=== PATIENT | male | born 1965 | race Caucasian/White ===

== ENCOUNTER 2017-06-22 09:27 | Inpatient (IN) | payer OTHER ==
[2017-06-22 09:49] VITALS: BMI 30.7
--- NOTE | 2017-06-22 10:03 | HP ---
COWS - Scale Resting Pulse: 0= [place] 80 or Below Sweatin= Chills/Flushing Restless Observation: 1= Difficult to Sit Still Pupil Size: 0= Normal to Room Light Bone or Joint Aches: 1= Mild Discomfort Runny Nose/ Eye Tearin= Runny Nose/Eyes GI Upset > 30mins: 2= Nausea/Diarrhea Tremor Observation: 1= Tremor [place], Not Seen Yawning Observation: 1= 1-2x During Session Anxiety or Irritability: 1=Feels Anxious/Irritable Goose Flesh Skin: 0=Smooth Skin COWS Score: 10 CIWA Score - CIWA Score Nausea/Vomitin-Mild Nausea/No Vomiting Muscle Tremors: 4-Moderate,w/Arms Extend Anxiety: 4-Mod. Anxious/Guarded Agitation: 1-Slight > Activity Paroxysmal Sweats: 1-Minimal Palms Moist Orientation: 1-Uncertain about Date Tacttile Disturbances: 1-Very Mild Itch/Numbness Auditory Disturbances: 1-Very Mild Visual Disturbances: 1-Very Mild Sensitivity Headache: 1-Very Mild CIWA-Ar Total Score: 16 Admission ROS S - HPI Chief Complaint: I want help, I want to stop using Allergies/Adverse Reactions: Allergies Allergy/AdvReac Type Severity Reaction Status Date / Time Penicillins Allergy Severe Difficulty Verified 06/22/17 09:52 Breathing History of Present Illness: 51 yo gentleman here for detox from alcohol, heroin, cocaine and 'occasion' alprazolam abuse. History of detox, rehab and methadone at [facility] years ago (history of methadone 100mg in program). No seizures. Exam Limitations: Clinical Condition - Ebola screening Have you traveled outside of the country in the last 21 days: No Have you had contact with anyone from an Ebola affected area: No Have you been sick,other than usual withdrawal symptoms: No Do you have a fever: No - Review of Systems Constitutional: Chills, Loss of Appetite, Malaise, Night Sweats, Changes in sleep EENT: reports: Nose Congestion Respiratory: reports: No Symptoms reported Cardiac: reports: No Symptoms Reported GI: reports: Nausea, Poor Appetite, Poor Fluid Intake : reports: Dysuria Musculoskeletal: reports: Back Pain Integumentary: reports: No Symptoms Reported Neuro: reports: Headache Endocrine: reports: No Symptoms Reported Hematology: reports: No Symptoms Reported Psychiatric: reports: Judgement Intact, Mood/Affect Appropiate, Orientated x3 Other Systems: Reviewed and Negative Patient History - Patient Medical History Hx Anemia: No Hx Asthma: No Hx Chronic Obstructive Pulmonary Disease (COPD): No Hx Cancer: No Hx Cardiac Disorders: No Hx Congestive Heart Failure: No Hx Hypertension: No Hx Hypercholesterolemia: No Hx Pacemaker: No HX Cerebrovascular Accident: No Hx Seizures: No Hx Dementia: No Hx Diabetes: No Hx Gastrointestinal Disorders: No Hx Liver Disease: No Hx Genitourinary Disorders: No Hx Sexually Transmitted Disorders: No Hx Renal Disease (ESRD): No Hx Thyroid Disease: No Hx Human Immunodeficiency Virus (HIV): No Hx Hepatitis C: Yes (treated x 3months last year isabelle) Hx Depression: Yes (with anxiety - hx seeing psych - hx meds) Hx Suicide Attempt: No Hx Bipolar Disorder: No Hx Schizophrenia: No - Patient Surgical History Past Surgical History: Yes Hx Abdominal Surgery: Yes (gastric sleeve lost 100lbs 2014) Hx Appendectomy: Yes Hx Orthopedic Surgery: Yes (left pinky tendon/nerve repair 1999) - PPD History Previous Implant?: Yes Documented Results: Positive w/o proof Implanted On Prior [facility] Admission?: No PPD to be Administered?: No - Reproductive History Patient is a Female of Child Bearing Age (11 -55 yrs old): No (male) - Smoking Cessation Smoking history: Current every day smoker Have you smoked in the past 12 months: Yes Aproximately how many cigarettes per day: 20 Hx Chewing Tobacco Use: No Initiated information on smoking cessation: Yes 'Breaking Loose' booklet given: 06/22/17 (give on floor) - Substance & Tx. History Hx Alcohol Use: Yes Hx Substance Use: Yes Substance Use Type: Alcohol, Cocaine, Heroin, Opiates Hx Substance Use Treatment: Yes (detox, rehab, methadone program) - Substances Abused Alcohol Route: Oral Frequency: Daily Amount used: two six packs beer; 2 pints liquor Age of first use: 19 Date of Last Use: 06/21/17 Heroin Route: Injection Frequency: Daily Amount used: 3gm Age of first use: 21 Date of Last Use: 06/22/17 Cocaine Route: Injection Frequency: Daily Amount used: 1gm Age of first use: 21 Date of Last Use: 06/22/17 Non-Rx Methadone Route: Oral Frequency: 1-2 times per week Amount used: 50mg Age of first use: 47 Date of Last Use: 06/21/17 Alprazolam (Xanax) Route: Oral Frequency: 1-3 times last 30 days Amount used: 4 mg Age of first use: 21 Date of Last Use: 06/22/17 Family Disease History - Family Disease History Family Disease History: Heart Disease: Father (living, ), Other: Father, Mother (living, arthritis), Brother (one living, healthy) Admission Physical Exam [facility] - Vital Signs Vital Signs: Vital Signs - 24 hr 06/22/17 09:43 Temperature 97.4 F L Pulse Rate 71 Respiratory 20 Rate Blood Pressure 124/75 - Physical General Appearance: Yes: Nourished, Appropriately Dressed, Moderate Distress, Tremorous, Anxious HEENTM: Yes: Hearing grossly Normal, Normal ENT Inspection, Normocephalic, Normal Voice, Pharynx Normal Respiratory: Yes: Normal Breath Sounds, No Respiratory Distress Neck: Yes: No masses,lesions,Nodules Breast: Yes: Breast Exam Deferred Cardiology: Yes: Regular Rhythm, Regular Rate Abdominal: Yes: Soft Genitourinary: Yes: Within Normal Limits Back: Yes: Normal Inspection Musculoskeletal: Yes: full range of Motion, Gait Steady, Muscle Pain Extremities: Yes: Normal Inspection, Non-Tender Neurological: Yes: Fully Oriented, Alert, Normal Mood/Affect, Normal Response Integumentary: Yes: Normal Color, Warm, Track Davis (left arm) Lymphatic: Yes: Within Normal Limits - Diagnostic (1) Uncomplicated opioid dependence Current Visit: Yes Status: Chronic (2) Alcohol dependence with uncomplicated withdrawal Current Visit: Yes Status: Chronic (3) Cocaine dependence Current Visit: Yes Status: Chronic Qualifiers: Substance use status: uncomplicated Qualified Code(s): F14.20 - Cocaine dependence, uncomplicated (4) Mild alprazolam use disorder Current Visit: Yes Status: Chronic (5) Nicotine dependence Current Visit: Yes Status: Chronic Qualifiers: Nicotine product type: cigarettes Substance use status: uncomplicated Qualified Code(s): F17.210 - Nicotine dependence, cigarettes, uncomplicated (6) PPD positive, treated Current Visit: Yes Status: Chronic Comment: states took INH x 6 months (7) History of gastric bypass Current Visit: Yes Status: Chronic Cleared for Admission [facility] - Detox or Rehab [facility] Level of Care: Medically Managed Detox Regimen/Protocol: Methadone/Librium [facility] Breath Alcohol Content Breath Alcohol Content: 0 Urine Drug Screen - Results Drug Screen Negative: No Urine Drug Screen Results: ROYAL-Cocaine, OPI-Opiates, MTD-Methadone
[2017-06-22] MEDS ORDERED: LOPERAMIDE HCL 2 MG CAPSULE PO PRN (10:35)
[2017-06-22] MEDS ORDERED: hydrOXYzine PAMOATE 50 MG CAPSULE (FP) PO PRN (10:35)
[2017-06-22] MEDS ORDERED: P-EPHED 60MG/TRIPROLIDI 2.5MG TABLET PO PRN (10:35)
[2017-06-22] MEDS ORDERED: MAGNESIUM HYDROX 2400MG/30ML ORAL SUSPENSION 30 ML CUP PO PRN (10:35)
[2017-06-22] MEDS ORDERED: MAGNESIUM CITRATE 300 ML BOTTLE PO PRN (10:35)
[2017-06-22] MEDS ORDERED: chlordiazePOXIDE HCL 25 MG CAPSULE PO PRN (10:35)
[2017-06-22] MEDS ORDERED: IBUPROFEN 400 MG TABLET (FP) PO PRN (10:35)
[2017-06-22] MEDS ORDERED: MAG HYDROX/AL HYDROX/SIMETH 30 ML UNIT-DOSE CUP PO PRN (10:35)
[2017-06-22] MEDS ORDERED: METHADONE HCL 10 MG TABLET (FOR DETOX USE ONLY) PO ONE ×3 (10:35→23:00)
[2017-06-22] MEDS ORDERED: guaiFENesin/D-METHORPHAN HB 10 ML UNIT-DOSE CUPS PO PRN (10:35)
[2017-06-22] MEDS ORDERED: MENTHOL/PHENOL 1 EACH UD MM PRN (10:35)
[2017-06-22] MEDS ORDERED: chlordiazePOXIDE HCL 25 MG CAPSULE PO ONE (13:00)
[2017-06-22] MEDS: NICOTINE 21 MG/24 HOURS TOPICAL PATCH TD SCH (13:28)
[2017-06-22] MEDS: chlordiazePOXIDE HCL 25 MG CAPSULE PO SCH ×2 (17:28→22:39)
[2017-06-22 17:42] LABS: URINE APPEARANCE SLCLOUDY; URINE BILIRUBIN NEGATIVE (NEGATIVE); URINE BLOOD NEGATIVE (NEGATIVE); URINE COLOR AMBER; URINE GLUCOSE (UA) NEGATIVE (NEGATIVE); URINE KETONE TRACE (NEGATIVE); URINE LEUK ESTERASE NEGATIVE (NEGATIVE); URINE NITRITE NEGATIVE (NEGATIVE)
[2017-06-22 17:49] LABS: URINE PROTEIN 1+ (NEGATIVE)
[2017-06-22 18:03] LABS: URINE MUCUS MANY
[2017-06-22] MEDS: THIAMINE HCL 100 MG TABLET (FP) PO SCH (22:39)
[2017-06-23] MEDS: chlordiazePOXIDE HCL 25 MG CAPSULE PO SCH ×4 (05:20→22:34)
[2017-06-23] MEDS ORDERED: METHADONE HCL 10 MG TABLET (FOR DETOX USE ONLY) PO SCH (10:00)
[2017-06-23 10:34] LABS: MCH 28.5 pg (25.7-33.7); MCHC 33.7 g/dl (32.0-35.9); MEAN CELL VOLUME 84.6 fl (80-96); MEAN PLT VOLUME 7.3 fl (7.5-11.1); PLATELET COUNT 169 K/MM3 (134-434); RDW 13.1 % (11.9-15.9)
[2017-06-23] MEDS: PRENATAL VITAMINS W/ FOLIC ACID TABLET (FP) PO SCH (10:43)
[2017-06-23] MEDS: NICOTINE 21 MG/24 HOURS TOPICAL PATCH TD SCH (10:43)
[2017-06-23 10:47] LABS: ALBUMIN 3.3 g/dl (3.4-5.0); ANION GAP 5 (8-16); CALCIUM 8.6 mg/dL (8.5-10.1); CO2 31 mmol/L (21-32); GLUCOSE,RANDOM 103 mg/dL (74-106)
[2017-06-23 10:51] LABS: ALK PHOS 61 U/L (45-117); BILIRUBIN,TOTAL 0.5 mg/dL (0.2-1.0); CREATININE 0.9 mg/dL (0.7-1.3); SGOT/AST 22 U/L (15-37); SGPT/ALT 29 U/L (12-78); TOT PROT 6.3 g/dl (6.4-8.2)
--- NOTE | 2017-06-23 11:01 | PN ---
[facility] Progress Note Note: Patient is on senior underwriter's consult list. He was approached this late morning at bedside. He was found in bed covered with bedsheet up to the neck. Critical Care Rn introduced himself and politely told him that he is here to talk to him. He responded:"For what". After being explained the reason, he declined the interview by saying:" No thank you, I'm good".
[2017-06-23] MEDS ORDERED: FLU VACCINE QUAD 60 MCG/0.5 ML (MDV 17-18) IM ONE (14:00)
[2017-06-23] MEDS: IBUPROFEN 600 MG TABLET (FP) PO PRN (14:56)
[2017-06-23] MEDS: CYCLOBENZAPRINE HCL 10 MG TABLET (FP) PO SCH ×2 (14:57→22:34)
[2017-06-23] MEDS: LIDOCAINE 5% TOPICAL PATCH TP SCH (14:57)
[2017-06-23] MEDS: ACETAMINOPHEN 325 MG TABLET (FP) PO PRN (17:19)
[2017-06-23] MEDS ORDERED: POTASSIUM CHLORIDE TABS 20 MEQ TABLET.ER (FP) PO ONE (18:49)
--- NOTE | 2017-06-23 18:49 | PN ---
S CIWA - CIWA Score Nausea/Vomitin Muscle Tremors: 4-Moderate,w/Arms Extend Anxiety: 4-Mod. Anxious/Guarded Agitation: 4-Moderately Restless Paroxysmal Sweats: 3 Orientation: 0-Oriented Tacttile Disturbances: 1-Very Mild Itch/Numbness Auditory Disturbances: 0-None Visual Disturbances: 0-None Headache: 1-Very Mild CIWA-Ar Total Score: 20 BHS COWS - Scale Resting Pulse: 0= [place] 80 or Below Sweatin=Flushed/Facial Moisture Restless Observation: 3= Extraneous Movement Pupil Size: 0= Normal to Room Light Bone or Joint Aches: 2= Severe Diffuse Aches Runny Nose/ Eye Tearin= Runny Nose/Eyes GI Upset > 30mins: 2= Nausea/Diarrhea Tremor Observation of Outstretched Hands: 2= Slight Tremor Visible Yawning Observation: 0= None Anxiety or Irritability: 2=Irritable/Anxious Goose Flesh Skin: 0=Smooth Skin COWS Score: 15 S Progress Note (SOAP) Subjective: Chills, body aches, nausea, tremor, sweating, headache, severe back pain (07/16) Objective: 06/23/17 18:45 Last Vital Signs Temp Pulse Resp BP Pulse Ox 97.2 F L 51 L 20 105/54 06/23/17 18:29 06/23/17 18:29 06/23/17 18:29 06/23/17 18:29 Laboratory Tests 06/22/17 06/23/17 06/23/17 17:20 07:30 07:30 WBC 5.0 RBC 4.18 Hgb 11.9 Hct 35.3 L MCV 84.6 MCH 28.5 MCHC 33.7 RDW 13.1 Plt Count 169 MPV 7.3 L Sodium 144 Potassium 3.2 L Chloride 108 H Carbon Dioxide 31 Anion Gap 5 L BUN 9 Creatinine 0.9 Creat Clearance w eGFR > 60 Random Glucose 103 Calcium 8.6 Total Bilirubin 0.5 AST 22 ALT 29 Alkaline Phosphatase 61 Total Protein 6.3 L Albumin 3.3 L Urine Color Jennifer Urine Appearance Slcloudy Urine pH 5.0 Ur Specific [place] >= 1.030 H Urine Protein 1+ H Urine Glucose (UA) Negative Urine Ketones Trace H Urine Blood Negative Urine Nitrite Negative Urine Bilirubin Negative Urine Urobilinogen 2.0 Urine RBC None Urine WBC None Ur Epithelial Cells Rare Urine Mucus Many RPR Titer 06/23/17 07:30 WBC RBC Hgb Hct MCV MCH MCHC RDW Plt Count MPV Sodium Potassium Chloride Carbon Dioxide Anion Gap BUN Creatinine Creat Clearance w eGFR Random Glucose Calcium Total Bilirubin AST ALT Alkaline Phosphatase Total Protein Albumin Urine Color Urine Appearance Urine pH Ur Specific [place] Urine Protein Urine Glucose (UA) Urine Ketones Urine Blood Urine Nitrite Urine Bilirubin Urine Urobilinogen Urine RBC Urine WBC Ur Epithelial Cells Urine Mucus RPR Titer Nonreactive Labs noted: K 3.2, abnormal UA Assessment: 06/23/17 18:46 Withdrawal symptoms Noted with hypokalemia and abnormal UA Plan: Continue detox Hypokalemia: K DUR 40 meq PO x 1 dose then 20meq PO daily, repeat potassium level on Saturday Abnormal UA: encouraged to drink lots of water, repeat UA
[2017-06-23] MEDS: THIAMINE HCL 100 MG TABLET (FP) PO SCH (22:33)
[2017-06-23] MEDS: diphenhydrAMINE HCL 50 MG CAPSULE PO PRN (22:34)
[2017-06-23] MEDS: LIDOCAINE PATCH REMOVAL MC SCH (22:34)
[2017-06-24] MEDS: chlordiazePOXIDE HCL 25 MG CAPSULE PO SCH ×2 (05:39→10:23)
[2017-06-24] MEDS: CYCLOBENZAPRINE HCL 10 MG TABLET (FP) PO SCH ×3 (05:39→22:25)
[2017-06-24 09:53] LABS: URINE APPEARANCE CLEAR; URINE BILIRUBIN NEGATIVE (NEGATIVE); URINE BLOOD NEGATIVE (NEGATIVE); URINE COLOR YELLOW; URINE GLUCOSE (UA) NEGATIVE (NEGATIVE); URINE KETONE NEGATIVE (NEGATIVE); URINE NITRITE NEGATIVE (NEGATIVE); URINE PROTEIN NEGATIVE (NEGATIVE); URINE UROBILINOGEN NEGATIVE mg/dL (0.2-1.0)
[2017-06-24] MEDS: METHADONE HCL 5 MG TABLET (FOR DETOX USE ONLY) PO SCH (10:23)
[2017-06-24] MEDS: NICOTINE 21 MG/24 HOURS TOPICAL PATCH TD SCH (10:23)
[2017-06-24] MEDS: PRENATAL VITAMINS W/ FOLIC ACID TABLET (FP) PO SCH (10:23)
[2017-06-24] MEDS: LIDOCAINE 5% TOPICAL PATCH TP SCH (10:24)
[2017-06-24] MEDS: POTASSIUM CHLORIDE TABS 20 MEQ TABLET.ER (FP) PO SCH (10:24)
[2017-06-24] MEDS: IBUPROFEN 600 MG TABLET (FP) PO PRN (10:24)
--- NOTE | 2017-06-24 11:24 | PN ---
[facility] CIWA - CIWA Score Nausea/Vomitin-Mild Nausea/No Vomiting Muscle Tremors: 3 Anxiety: 4-Mod. Anxious/Guarded Agitation: 3 Paroxysmal Sweats: 3 Orientation: 0-Oriented Tacttile Disturbances: 0-None Auditory Disturbances: 0-None Visual Disturbances: 0-None Headache: 0-None Present CIWA-Ar Total Score: 14 BHS COWS - Scale Resting Pulse: 1= [place] 81-100 Sweatin=Flushed/Facial Moisture Restless Observation: 1= Difficult to Sit Still Pupil Size: 0= Normal to Room Light Bone or Joint Aches: 1= Mild Discomfort Runny Nose/ Eye Tearin= Nasal Congestion GI Upset > 30mins: 1= Stomach Cramp Tremor Observation of Outstretched Hands: 2= Slight Tremor Visible Yawning Observation: 1= 1-2x During Session Anxiety or Irritability: 2=Irritable/Anxious Goose Flesh Skin: 0=Smooth Skin COWS Score: 12 S Progress Note (SOAP) Subjective: Body aches,sweating,anxiety,tremors,interrupted sleep,restless. Objective: 06/24/17 11:21 Last Vital Signs Temp Pulse Resp BP Pulse Ox 97.7 F 84 18 99/71 06/24/17 09:42 06/24/17 09:42 06/24/17 09:42 06/24/17 09:42 Laboratory Tests 06/22/17 06/23/17 06/23/17 17:20 07:30 07:30 WBC 5.0 RBC 4.18 Hgb 11.9 Hct 35.3 L MCV 84.6 MCH 28.5 MCHC 33.7 RDW 13.1 Plt Count 169 MPV 7.3 L Sodium 144 Potassium 3.2 L Chloride 108 H Carbon Dioxide 31 Anion Gap 5 L BUN 9 Creatinine 0.9 Creat Clearance w eGFR > 60 Random Glucose 103 Calcium 8.6 Total Bilirubin 0.5 AST 22 ALT 29 Alkaline Phosphatase 61 Total Protein 6.3 L Albumin 3.3 L Urine Color Jennifer Urine Appearance Slcloudy Urine pH 5.0 Ur Specific [place] >= 1.030 H Urine Protein 1+ H Urine Glucose (UA) Negative Urine Ketones Trace H Urine Blood Negative Urine Nitrite Negative Urine Bilirubin Negative Urine Urobilinogen 2.0 Urine RBC None Urine WBC None Ur Epithelial Cells Rare Urine Mucus Many RPR Titer 06/23/17 06/24/17 07:30 08:00 WBC RBC Hgb Hct MCV MCH MCHC RDW Plt Count MPV Sodium Potassium Chloride Carbon Dioxide Anion Gap BUN Creatinine Creat Clearance w eGFR Random Glucose Calcium Total Bilirubin AST ALT Alkaline Phosphatase Total Protein Albumin Urine Color Yellow Urine Appearance Clear Urine pH 5.0 Ur Specific [place] Urine Protein Negative Urine Glucose (UA) Negative Urine Ketones Negative Urine Blood Negative Urine Nitrite Negative Urine Bilirubin Negative Urine Urobilinogen Negative Urine RBC Urine WBC Ur Epithelial Cells Urine Mucus RPR Titer Nonreactive labs noted,k+ replacement in progress, u/a of 06/24 is wnl Assessment: 06/24/17 11:22 Withdrawal sx. Hypokalemia Plan: Continue detox & k-dur
[2017-06-24] MEDS: ACETAMINOPHEN 325 MG TABLET (FP) PO PRN (12:58)
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
--- NOTE | 2017-06-24 17:02 | EKG ---
Test Reason : Blood Pressure : / mmHG Vent. Rate : 056 BPM Atrial Rate : 056 BPM P-R Int : 178 ms QRS Dur : 106 ms QT Int : 484 ms P-R-T Axes : 061 032 050 degrees QTc Int : 467 ms SINUS BRADYCARDIA T WAVE ABNORMALITY, CONSIDER ANTERIOR ISCHEMIA PROLONGED QT ABNORMAL ECG NO PREVIOUS ECGS AVAILABLE Confirmed by TANVIR LINARES MD ([id number]) on 06/24/2017 5:01:46 PM Referred By: Confirmed By:TANVIR LINARES MD
[2017-06-24] MEDS: chlordiazePOXIDE 5 MG CAPSULE PO SCH ×2 (17:11→22:25)
[2017-06-24] MEDS ORDERED: CYCLOBENZAPRINE HCL 5 MG TABLET PO SCH (22:00)
[2017-06-24] MEDS: QUEtiapine FUMARATE 100 MG TABLET (FP) PO SCH (22:25)
[2017-06-24] MEDS: diphenhydrAMINE HCL 50 MG CAPSULE PO PRN (22:25)
[2017-06-24] MEDS: THIAMINE HCL 100 MG TABLET (FP) PO SCH (22:25)
[2017-06-24] MEDS: LIDOCAINE PATCH REMOVAL MC SCH (22:25)
[2017-06-25] MEDS: chlordiazePOXIDE 5 MG CAPSULE PO SCH ×2 (05:52→10:32)
[2017-06-25] MEDS: CYCLOBENZAPRINE HCL 10 MG TABLET (FP) PO SCH ×3 (05:52→22:23)
[2017-06-25] MEDS: POTASSIUM CHLORIDE TABS 20 MEQ TABLET.ER (FP) PO SCH (10:32)
[2017-06-25] MEDS: PRENATAL VITAMINS W/ FOLIC ACID TABLET (FP) PO SCH (10:32)
[2017-06-25] MEDS: LIDOCAINE 5% TOPICAL PATCH TP SCH (10:32)
[2017-06-25] MEDS: NICOTINE 21 MG/24 HOURS TOPICAL PATCH TD SCH (10:32)
[2017-06-25] MEDS: METHADONE HCL 5 MG TABLET (FOR DETOX USE ONLY) PO SCH (10:32)
[2017-06-25] MEDS: IBUPROFEN 600 MG TABLET (FP) PO PRN ×2 (10:35→22:24)
--- NOTE | 2017-06-25 11:38 | PN ---
[facility] Progress Note (SOAP) Subjective: DECREASED ANXIETY,TREMORS, SWEATS. Objective: 06/25/17 11:37 Vital Signs Temperature 98.5 F 06/25/17 09:14 Pulse Rate 66 06/25/17 09:14 Respiratory Rate 18 06/25/17 09:14 Blood Pressure 122/86 06/25/17 09:14 O2 Sat by Pulse Oximetry (%) Laboratory Last Values WBC 5.0 K/mm3 (4.0-10.0) 06/23/17 07:30 RBC 4.18 M/mm3 (4.00-5.60) 06/23/17 07:30 Hgb 11.9 GM/dL (11.7-16.9) 06/23/17 07:30 Hct 35.3 % (35.4-49) L 06/23/17 07:30 MCV 84.6 fl (80-96) 06/23/17 07:30 MCH 28.5 pg (25.7-33.7) 06/23/17 07:30 MCHC 33.7 g/dl (32.0-35.9) 06/23/17 07:30 RDW 13.1 % (11.9-15.9) 06/23/17 07:30 Plt Count 169 K/MM3 (134-434) 06/23/17 07:30 MPV 7.3 fl (7.5-11.1) L 06/23/17 07:30 Sodium 144 mmol/L (136-145) 06/23/17 07:30 Potassium 3.6 mmol/L (3.5-5.1) 06/25/17 07:00 Chloride 108 mmol/L (98-107) H 06/23/17 07:30 Carbon Dioxide 31 mmol/L (21-32) 06/23/17 07:30 Anion Gap 5 (8-16) L 06/23/17 07:30 BUN 9 mg/dL (7-18) 06/23/17 07:30 Creatinine 0.9 mg/dL (0.7-1.3) 06/23/17 07:30 Creat Clearance w eGFR > 60 (>60) 06/23/17 07:30 Random Glucose 103 mg/dL (74-106) 06/23/17 07:30 Calcium 8.6 mg/dL (8.5-10.1) 06/23/17 07:30 Total Bilirubin 0.5 mg/dL (0.2-1.0) 06/23/17 07:30 AST 22 U/L (15-37) 06/23/17 07:30 ALT 29 U/L (12-78) 06/23/17 07:30 Alkaline Phosphatase 61 U/L (45-117) 06/23/17 07:30 Total Protein 6.3 g/dl (6.4-8.2) L 06/23/17 07:30 Albumin 3.3 g/dl (3.4-5.0) L 06/23/17 07:30 Urine Color Yellow 06/24/17 08:00 Urine Appearance Clear 06/24/17 08:00 Urine pH 5.0 (5.0-8.0) 06/24/17 08:00 Ur Specific [place] 1.015 (1.005-1.025) 06/24/17 08:00 Urine Protein Negative (NEGATIVE) 06/24/17 08:00 Urine Glucose (UA) Negative (NEGATIVE) 06/24/17 08:00 Urine Ketones Negative (NEGATIVE) 06/24/17 08:00 Urine Blood Negative (NEGATIVE) 06/24/17 08:00 Urine Nitrite Negative (NEGATIVE) 06/24/17 08:00 Urine Bilirubin Negative (NEGATIVE) 06/24/17 08:00 Urine Urobilinogen Negative mg/dL (0.2-1.0) 06/24/17 08:00 Urine RBC None /hpf (0-3) 06/22/17 17:20 Urine WBC None /hpf (3-5) 06/22/17 17:20 Ur Epithelial Cells Rare /hpf (FEW) 06/22/17 17:20 Urine Mucus Many 06/22/17 17:20 RPR Titer Nonreactive (NONREACTIVE) 06/23/17 07:30 Assessment: 06/25/17 11:37 WITHDRAWAL SX Laboratory Last Values WBC 5.0 K/mm3 (4.0-10.0) 06/23/17 07:30 RBC 4.18 M/mm3 (4.00-5.60) 06/23/17 07:30 Hgb 11.9 GM/dL (11.7-16.9) 06/23/17 07:30 Hct 35.3 % (35.4-49) L 06/23/17 07:30 MCV 84.6 fl (80-96) 06/23/17 07:30 MCH 28.5 pg (25.7-33.7) 06/23/17 07:30 MCHC 33.7 g/dl (32.0-35.9) 06/23/17 07:30 RDW 13.1 % (11.9-15.9) 06/23/17 07:30 Plt Count 169 K/MM3 (134-434) 06/23/17 07:30 MPV 7.3 fl (7.5-11.1) L 06/23/17 07:30 Sodium 144 mmol/L (136-145) 06/23/17 07:30 Potassium 3.6 mmol/L (3.5-5.1) 06/25/17 07:00 Chloride 108 mmol/L (98-107) H 06/23/17 07:30 Carbon Dioxide 31 mmol/L (21-32) 06/23/17 07:30 Anion Gap 5 (8-16) L 06/23/17 07:30 BUN 9 mg/dL (7-18) 06/23/17 07:30 Creatinine 0.9 mg/dL (0.7-1.3) 06/23/17 07:30 Creat Clearance w eGFR > 60 (>60) 06/23/17 07:30 Random Glucose 103 mg/dL (74-106) 06/23/17 07:30 Calcium 8.6 mg/dL (8.5-10.1) 06/23/17 07:30 Total Bilirubin 0.5 mg/dL (0.2-1.0) 06/23/17 07:30 AST 22 U/L (15-37) 06/23/17 07:30 ALT 29 U/L (12-78) 06/23/17 07:30 Alkaline Phosphatase 61 U/L (45-117) 06/23/17 07:30 Total Protein 6.3 g/dl (6.4-8.2) L 06/23/17 07:30 Albumin 3.3 g/dl (3.4-5.0) L 06/23/17 07:30 Urine Color Yellow 06/24/17 08:00 Urine Appearance Clear 06/24/17 08:00 Urine pH 5.0 (5.0-8.0) 06/24/17 08:00 Ur Specific [place] 1.015 (1.005-1.025) 06/24/17 08:00 Urine Protein Negative (NEGATIVE) 06/24/17 08:00 Urine Glucose (UA) Negative (NEGATIVE) 06/24/17 08:00 Urine Ketones Negative (NEGATIVE) 06/24/17 08:00 Urine Blood Negative (NEGATIVE) 06/24/17 08:00 Urine Nitrite Negative (NEGATIVE) 06/24/17 08:00 Urine Bilirubin Negative (NEGATIVE) 06/24/17 08:00 Urine Urobilinogen Negative mg/dL (0.2-1.0) 06/24/17 08:00 Urine RBC None /hpf (0-3) 06/22/17 17:20 Urine WBC None /hpf (3-5) 06/22/17 17:20 Ur Epithelial Cells Rare /hpf (FEW) 06/22/17 17:20 Urine Mucus Many 06/22/17 17:20 RPR Titer Nonreactive (NONREACTIVE) 06/23/17 07:30 Plan: CONTINUE DETOX.
[2017-06-25] MEDS: chlordiazePOXIDE HCL 10 MG CAPSULE PO SCH ×2 (17:03→22:25)
[2017-06-25] MEDS: THIAMINE HCL 100 MG TABLET (FP) PO SCH (22:23)
[2017-06-25] MEDS: QUEtiapine FUMARATE 100 MG TABLET (FP) PO SCH (22:23)
[2017-06-25] MEDS: LIDOCAINE PATCH REMOVAL MC SCH (22:25)
[2017-06-26] MEDS: chlordiazePOXIDE HCL 10 MG CAPSULE PO SCH ×2 (05:42→10:24)
[2017-06-26] MEDS: CYCLOBENZAPRINE HCL 10 MG TABLET (FP) PO SCH ×3 (05:42→22:39)
[2017-06-26] MEDS ORDERED: METHADONE HCL 10 MG TABLET (FOR DETOX USE ONLY) PO SCH (10:00)
[2017-06-26] MEDS: NICOTINE 21 MG/24 HOURS TOPICAL PATCH TD SCH (10:24)
[2017-06-26] MEDS: PRENATAL VITAMINS W/ FOLIC ACID TABLET (FP) PO SCH (10:24)
[2017-06-26] MEDS: POTASSIUM CHLORIDE TABS 20 MEQ TABLET.ER (FP) PO SCH (10:24)
[2017-06-26] MEDS: LIDOCAINE 5% TOPICAL PATCH TP SCH (11:44)
--- NOTE | 2017-06-26 12:30 | PN ---
[facility] Progress Note (SOAP) Subjective: ANXIETY,SWEATS, TREMORS, INTERMITTENT SLEEP. Objective: 06/26/17 12:29 Vital Signs Temperature 97.6 F 06/26/17 09:34 Pulse Rate 79 06/26/17 09:34 Respiratory Rate 18 06/26/17 09:34 Blood Pressure 123/72 06/26/17 09:34 O2 Sat by Pulse Oximetry (%) Laboratory Last Values WBC 5.0 K/mm3 (4.0-10.0) 06/23/17 07:30 RBC 4.18 M/mm3 (4.00-5.60) 06/23/17 07:30 Hgb 11.9 GM/dL (11.7-16.9) 06/23/17 07:30 Hct 35.3 % (35.4-49) L 06/23/17 07:30 MCV 84.6 fl (80-96) 06/23/17 07:30 MCH 28.5 pg (25.7-33.7) 06/23/17 07:30 MCHC 33.7 g/dl (32.0-35.9) 06/23/17 07:30 RDW 13.1 % (11.9-15.9) 06/23/17 07:30 Plt Count 169 K/MM3 (134-434) 06/23/17 07:30 MPV 7.3 fl (7.5-11.1) L 06/23/17 07:30 Sodium 144 mmol/L (136-145) 06/23/17 07:30 Potassium 3.6 mmol/L (3.5-5.1) 06/25/17 07:00 Chloride 108 mmol/L (98-107) H 06/23/17 07:30 Carbon Dioxide 31 mmol/L (21-32) 06/23/17 07:30 Anion Gap 5 (8-16) L 06/23/17 07:30 BUN 9 mg/dL (7-18) 06/23/17 07:30 Creatinine 0.9 mg/dL (0.7-1.3) 06/23/17 07:30 Creat Clearance w eGFR > 60 (>60) 06/23/17 07:30 Random Glucose 103 mg/dL (74-106) 06/23/17 07:30 Calcium 8.6 mg/dL (8.5-10.1) 06/23/17 07:30 Total Bilirubin 0.5 mg/dL (0.2-1.0) 06/23/17 07:30 AST 22 U/L (15-37) 06/23/17 07:30 ALT 29 U/L (12-78) 06/23/17 07:30 Alkaline Phosphatase 61 U/L (45-117) 06/23/17 07:30 Total Protein 6.3 g/dl (6.4-8.2) L 06/23/17 07:30 Albumin 3.3 g/dl (3.4-5.0) L 06/23/17 07:30 Urine Color Yellow 06/24/17 08:00 Urine Appearance Clear 06/24/17 08:00 Urine pH 5.0 (5.0-8.0) 06/24/17 08:00 Ur Specific [place] 1.015 (1.005-1.025) 06/24/17 08:00 Urine Protein Negative (NEGATIVE) 06/24/17 08:00 Urine Glucose (UA) Negative (NEGATIVE) 06/24/17 08:00 Urine Ketones Negative (NEGATIVE) 06/24/17 08:00 Urine Blood Negative (NEGATIVE) 06/24/17 08:00 Urine Nitrite Negative (NEGATIVE) 06/24/17 08:00 Urine Bilirubin Negative (NEGATIVE) 06/24/17 08:00 Urine Urobilinogen Negative mg/dL (0.2-1.0) 06/24/17 08:00 Urine RBC None /hpf (0-3) 06/22/17 17:20 Urine WBC None /hpf (3-5) 06/22/17 17:20 Ur Epithelial Cells Rare /hpf (FEW) 06/22/17 17:20 Urine Mucus Many 06/22/17 17:20 RPR Titer Nonreactive (NONREACTIVE) 06/23/17 07:30 Assessment: 06/26/17 12:29 WITHDRAWAL SX Plan: CONTINUE DETOX
[2017-06-26] MEDS: QUEtiapine FUMARATE 100 MG TABLET (FP) PO SCH (22:39)
[2017-06-26] MEDS: THIAMINE HCL 100 MG TABLET (FP) PO SCH (22:39)
[2017-06-26] MEDS: diphenhydrAMINE HCL 50 MG CAPSULE PO PRN (22:39)
[2017-06-26] MEDS: LIDOCAINE PATCH REMOVAL MC SCH (22:39)
[2017-06-26] MEDS: IBUPROFEN 600 MG TABLET (FP) PO PRN (22:40)
[2017-06-27] MEDS: CYCLOBENZAPRINE HCL 10 MG TABLET (FP) PO SCH (05:47)
[2017-06-27] MEDS ORDERED: METHADONE HCL 5 MG TABLET (FOR DETOX USE ONLY) PO SCH (06:00)
--- NOTE | 2017-06-27 08:20 | DS ---
[facility] Detox Discharge Summary Admission Date: 06/22/17 Discharge Date: 06/27/17 - History Present History: Alcohol Dependence, Cocaine Dependence, Opioid Dependence, Sedative Dependence Additional Comments: DETOX COMPLETED. ALERT O X 3. NAD. PT WILL BE FOLLOWING UP FOR MEDICAL MANAGEMENT AT [place], [place]. Pertinent Past History: S/P GASTRIC BYPASS - Physical Exam Results Vital Signs: Vital Signs Temperature 96.5 F L 06/27/17 06:29 Pulse Rate 81 06/27/17 06:29 Respiratory Rate 18 06/27/17 06:29 Blood Pressure 95/69 06/27/17 06:29 O2 Sat by Pulse Oximetry (%) Pertinent Admission Physical Exam Findings: WITHDRAWAL SX Laboratory Last Values WBC 5.0 K/mm3 (4.0-10.0) 06/23/17 07:30 RBC 4.18 M/mm3 (4.00-5.60) 06/23/17 07:30 Hgb 11.9 GM/dL (11.7-16.9) 06/23/17 07:30 Hct 35.3 % (35.4-49) L 06/23/17 07:30 MCV 84.6 fl (80-96) 06/23/17 07:30 MCH 28.5 pg (25.7-33.7) 06/23/17 07:30 MCHC 33.7 g/dl (32.0-35.9) 06/23/17 07:30 RDW 13.1 % (11.9-15.9) 06/23/17 07:30 Plt Count 169 K/MM3 (134-434) 06/23/17 07:30 MPV 7.3 fl (7.5-11.1) L 06/23/17 07:30 Sodium 144 mmol/L (136-145) 06/23/17 07:30 Potassium 3.6 mmol/L (3.5-5.1) 06/25/17 07:00 Chloride 108 mmol/L (98-107) H 06/23/17 07:30 Carbon Dioxide 31 mmol/L (21-32) 06/23/17 07:30 Anion Gap 5 (8-16) L 06/23/17 07:30 BUN 9 mg/dL (7-18) 06/23/17 07:30 Creatinine 0.9 mg/dL (0.7-1.3) 06/23/17 07:30 Creat Clearance w eGFR > 60 (>60) 06/23/17 07:30 Random Glucose 103 mg/dL (74-106) 06/23/17 07:30 Calcium 8.6 mg/dL (8.5-10.1) 06/23/17 07:30 Total Bilirubin 0.5 mg/dL (0.2-1.0) 06/23/17 07:30 AST 22 U/L (15-37) 06/23/17 07:30 ALT 29 U/L (12-78) 06/23/17 07:30 Alkaline Phosphatase 61 U/L (45-117) 06/23/17 07:30 Total Protein 6.3 g/dl (6.4-8.2) L 06/23/17 07:30 Albumin 3.3 g/dl (3.4-5.0) L 06/23/17 07:30 Urine Color Yellow 06/24/17 08:00 Urine Appearance Clear 06/24/17 08:00 Urine pH 5.0 (5.0-8.0) 06/24/17 08:00 Ur Specific [place] 1.015 (1.005-1.025) 06/24/17 08:00 Urine Protein Negative (NEGATIVE) 06/24/17 08:00 Urine Glucose (UA) Negative (NEGATIVE) 06/24/17 08:00 Urine Ketones Negative (NEGATIVE) 06/24/17 08:00 Urine Blood Negative (NEGATIVE) 06/24/17 08:00 Urine Nitrite Negative (NEGATIVE) 06/24/17 08:00 Urine Bilirubin Negative (NEGATIVE) 06/24/17 08:00 Urine Urobilinogen Negative mg/dL (0.2-1.0) 06/24/17 08:00 Urine RBC None /hpf (0-3) 06/22/17 17:20 Urine WBC None /hpf (3-5) 06/22/17 17:20 Ur Epithelial Cells Rare /hpf (FEW) 06/22/17 17:20 Urine Mucus Many 06/22/17 17:20 RPR Titer Nonreactive (NONREACTIVE) 06/23/17 07:30 - Treatment Hospital Course: Detox Protocol Followed, Detoxed Safely, Responded well, Discharged Condition Good, Rehab Referral Accepted - Medication Discharge Medications: Ambulatory Orders Cyclobenzaprine HCl [Flexeril -] 10 mg PO HS 06/22/17 Quetiapine Fumarate [Seroquel] 100 tab PO HS 06/22/17 Cyclobenzaprine HCl [Flexeril -] 10 mg PO HS #30 tablet 06/24/17 Quetiapine Fumarate [Seroquel] 100 mg PO HS #30 tablet 06/24/17 Quetiapine Fumarate [Seroquel] 100 mg PO HS #30 tablet 06/24/17 - Diagnosis (1) Alcohol dependence with uncomplicated withdrawal Status: Acute (2) Cocaine dependence Status: Acute Qualifiers: Substance use status: uncomplicated Qualified Code(s): F14.20 - Cocaine dependence, uncomplicated (3) History of gastric bypass Status: Chronic (4) Mild alprazolam use disorder Status: Acute (5) Nicotine dependence Status: Acute Qualifiers: Nicotine product type: cigarettes Substance use status: in withdrawal Qualified Code(s): F17.213 - Nicotine dependence, cigarettes, with withdrawal (6) Opioid dependence with withdrawal Status: Acute (7) History of hepatitis C Status: Chronic - AMA Did Patient Leave Against Medical Advice: No
[2017-06-27] MEDS: LIDOCAINE 5% TOPICAL PATCH TP SCH (09:10)
[2017-06-27] MEDS: PRENATAL VITAMINS W/ FOLIC ACID TABLET (FP) PO SCH (09:10)
[2017-06-27] MEDS: POTASSIUM CHLORIDE TABS 20 MEQ TABLET.ER (FP) PO SCH (09:10)
[2017-06-27 09:49] VITALS: BP 105/74; PULSE 86; TEMP 98.4
== END 2017-06-27 11:17 | disposition home or self-care (01) | DRG 773 ==
LOC: YASAS 09:27 → Y3N 11:09
PROVIDERS: ADMIT Internal Medicine; ATTEND Internal Medicine
PROC: HZ2ZZZZ Detoxification Services for Substance Abuse Treatment (ICD-10-PCS; principal; 2017-06-22)
DX: F11.23 Opioid dependence with withdrawal (principal); F13.10 Sedative, hypnotic or anxiolytic abuse, uncomplicated; F10.230 Alcohol dependence with withdrawal, uncomplicated; F17.213 Nicotine dependence, cigarettes, with withdrawal; F19.24 Other psychoactive substance dependence with psychoactive substance-induced mood disorder; Z98.84 Bariatric surgery status
CPT/HCPCS: 36415; 71020-TC; 80053; 81003; 81015; 84132; 85027; 86593; 93005; 93010

== ENCOUNTER 2021-03-12 15:07 | Inpatient (IN) | payer OTHER ==
[2021-03-12 16:04] VITALS: BMI 35.9
[2021-03-12] MEDS ORDERED: MAGNESIUM CITRATE 300 ML BOTTLE PO PRN (17:02)
[2021-03-12] MEDS ORDERED: ACETAMINOPHEN 325 MG TABLET (FP) PO PRN (17:02)
[2021-03-12] MEDS ORDERED: IBUPROFEN 400 MG TABLET (FP) PO PRN (17:02)
[2021-03-12] MEDS ORDERED: BISMUTH SUBSALICYLATE 524 MG/30 ML PO PRN (17:02)
[2021-03-12] MEDS ORDERED: MAG HYDROX/AL HYDROX/SIMETH 30 ML UNIT-DOSE CUP PO PRN (17:02)
[2021-03-12] MEDS ORDERED: MENTHOL/PHENOL 1 EACH UD MM PRN (17:02)
[2021-03-12] MEDS ORDERED: NICOTINE POLACRILEX 2 MG GUM BUC PRN (17:02)
[2021-03-12] MEDS ORDERED: METHADONE HCL 10 MG TABLET (FOR DETOX USE ONLY) PO ONE (17:04)
[2021-03-12] MEDS ORDERED: cloNIDine HCL 0.1 MG TABLET PO PRN (17:04)
[2021-03-12] MEDS: diazePAM 5 MG TABLET PO SCH ×2 (19:28→22:10)
[2021-03-12] MEDS: MELATONIN 5 MG TABLETS PO SCH (22:11)
[2021-03-12] MEDS: THIAMINE HCL 100 MG TABLET (FP) PO SCH (22:11)
[2021-03-13] MEDS: METHOCARBAMOL 500 MG TABLET PO PRN ×3 (00:50→17:38)
[2021-03-13] MEDS: ACETAMINOPHEN 325 MG TABLET (FP) PO PRN (05:28)
[2021-03-13] MEDS: diazePAM 5 MG TABLET PO SCH ×4 (05:29→21:59)
[2021-03-13] MEDS ORDERED: METHADONE HCL 10 MG TABLET (FOR DETOX USE ONLY) ONE (09:58)
[2021-03-13] MEDS ORDERED: METHADONE HCL 5 MG TABLET (FOR DETOX USE ONLY) ONE (09:58)
[2021-03-13] MEDS ORDERED: METHADONE (DETOX) 20 MG, METHADONE (DETOX) 5 MG PO ONE (10:00)
[2021-03-13] MEDS: PRENATAL VITAMINS W/ FOLIC ACID TABLET (FP) PO SCH (10:03)
[2021-03-13 10:24] LABS: HEMATOCRIT 34.5 % (35.4-49); HEMOGLOBIN 11.5 GM/dL (11.7-16.9); MCH 29.3 pg (25.7-33.7); MCHC 33.4 g/dl (32.0-35.9); MEAN CELL VOLUME 87.7 fl (80-96); MEAN PLT VOLUME 7.2 fl (7.5-11.1); PLATELET COUNT 166 K/MM3 (134-434); RBC 3.93 M/mm3 (4.00-5.60); RDW 14.6 % (11.9-15.9); WHITE BLOOD COUNT 4.5 K/mm3 (4.0-10.0)
[2021-03-13 10:39] LABS: CALCIUM 8.6 mg/dL (8.5-10.1)
[2021-03-13 10:40] LABS: ALBUMIN 3.2 g/dl (3.4-5.0); BLOOD UREA NITROGEN 16.4 mg/dL (7-18)
[2021-03-13 10:44] LABS: CREATININE 0.9 mg/dL (0.55-1.3)
[2021-03-13 10:45] LABS: TOT PROT 6.1 g/dl (6.4-8.2)
[2021-03-13 10:47] LABS: BILIRUBIN,TOTAL 1.1 mg/dL (0.2-1)
[2021-03-13] MEDS: diazePAM 5 MG TABLET PO PRN (13:49)
[2021-03-13] MEDS: THIAMINE HCL 100 MG TABLET (FP) PO SCH (21:57)
[2021-03-13] MEDS: MELATONIN 5 MG TABLETS PO SCH (21:57)
[2021-03-13] MEDS: MAGNESIUM HYDROX 2400MG/30ML ORAL SUSPENSION 30 ML CUP PO PRN (21:58)
[2021-03-14] MEDS: diazePAM 5 MG TABLET PO SCH ×2 (05:46→17:57)
[2021-03-14] MEDS: ACETAMINOPHEN 325 MG TABLET (FP) PO PRN ×2 (05:47→14:10)
[2021-03-14] MEDS ORDERED: METHADONE HCL 10 MG TABLET (FOR DETOX USE ONLY) PO ONE (10:00)
[2021-03-14] MEDS: diazePAM 5 MG TABLET PO PRN ×3 (10:07→22:08)
[2021-03-14] MEDS: PRENATAL VITAMINS W/ FOLIC ACID TABLET (FP) PO SCH (10:07)
[2021-03-14] MEDS: THIAMINE HCL 100 MG TABLET (FP) PO SCH (22:07)
[2021-03-14] MEDS: MELATONIN 5 MG TABLETS PO SCH (22:07)
[2021-03-15] MEDS: ACETAMINOPHEN 325 MG TABLET (FP) PO PRN (05:46)
[2021-03-15] MEDS ORDERED: diazePAM 5 MG TABLET PO ONE (06:00)
[2021-03-15] MEDS ORDERED: METHADONE HCL 10 MG TABLET (FOR DETOX USE ONLY) ONE (09:47)
[2021-03-15] MEDS ORDERED: METHADONE HCL 5 MG TABLET (FOR DETOX USE ONLY) ONE (09:47)
[2021-03-15] MEDS ORDERED: METHADONE (DETOX) 10 MG, METHADONE (DETOX) 5 MG PO ONE (10:00)
[2021-03-15] MEDS: diazePAM 5 MG TABLET PO PRN ×2 (10:04→15:12)
[2021-03-15] MEDS: PRENATAL VITAMINS W/ FOLIC ACID TABLET (FP) PO SCH (10:05)
[2021-03-15] MEDS: METHOCARBAMOL 500 MG TABLET PO PRN (10:06)
[2021-03-15 11:04] LABS: HEMATOCRIT 36.1 % (35.4-49); HEMOGLOBIN 12.1 GM/dL (11.7-16.9); MCH 29.5 pg (25.7-33.7); MCHC 33.7 g/dl (32.0-35.9); MEAN CELL VOLUME 87.6 fl (80-96); MEAN PLT VOLUME 7.1 fl (7.5-11.1); PLATELET COUNT 187 K/MM3 (134-434); RBC 4.12 M/mm3 (4.00-5.60); RDW 14.5 % (11.9-15.9); WHITE BLOOD COUNT 4.4 K/mm3 (4.0-10.0)
[2021-03-15 11:24] LABS: ALBUMIN 3.1 g/dl (3.4-5.0); BLOOD UREA NITROGEN 10.6 mg/dL (7-18)
[2021-03-15 11:27] LABS: CREATININE 0.7 mg/dL (0.55-1.3)
[2021-03-15 11:28] LABS: BILIRUBIN,TOTAL 0.2 mg/dL (0.2-1); TOT PROT 6.2 g/dl (6.4-8.2)
[2021-03-15] MEDS: hydrOXYzine PAMOATE 25 MG CAPSULE (FP) PO PRN ×2 (17:46→22:03)
[2021-03-15] MEDS: MELATONIN 5 MG TABLETS PO SCH (22:02)
[2021-03-15] MEDS: THIAMINE HCL 100 MG TABLET (FP) PO SCH (22:02)
[2021-03-15] MEDS: MAGNESIUM HYDROX 2400MG/30ML ORAL SUSPENSION 30 ML CUP PO PRN (22:04)
[2021-03-16] MEDS: hydrOXYzine PAMOATE 25 MG CAPSULE (FP) PO PRN ×4 (05:47→22:01)
[2021-03-16] MEDS: ACETAMINOPHEN 325 MG TABLET (FP) PO PRN ×2 (05:47→18:57)
[2021-03-16] MEDS: METHOCARBAMOL 500 MG TABLET PO PRN ×2 (09:53→18:57)
[2021-03-16] MEDS: PRENATAL VITAMINS W/ FOLIC ACID TABLET (FP) PO SCH (09:53)
[2021-03-16] MEDS ORDERED: METHADONE HCL 10 MG TABLET (FOR DETOX USE ONLY) PO ONE (10:00)
[2021-03-16] MEDS: MELATONIN 5 MG TABLETS PO SCH (22:01)
[2021-03-16] MEDS: THIAMINE HCL 100 MG TABLET (FP) PO SCH (22:01)
[2021-03-17] MEDS: ACETAMINOPHEN 325 MG TABLET (FP) PO PRN (04:33)
[2021-03-17] MEDS: METHOCARBAMOL 500 MG TABLET PO PRN (05:40)
[2021-03-17] MEDS ORDERED: METHADONE HCL 5 MG TABLET (FOR DETOX USE ONLY) PO ONE (06:00)
[2021-03-17 06:15] VITALS: TEMP 96.9
[2021-03-17 09:17] VITALS: BP 114/76; PULSE 84
[2021-03-17] MEDS: PRENATAL VITAMINS W/ FOLIC ACID TABLET (FP) PO SCH (09:36)
== END 2021-03-17 09:31 | disposition home or self-care (01) | DRG 773 ==
LOC: YASAS 15:07 → Y3N 17:57
PROVIDERS: ADMIT Allergy & Immunology; ATTEND Allergy & Immunology
PROC: HZ2ZZZZ Detoxification Services for Substance Abuse Treatment (ICD-10-PCS; principal; 2021-03-12)
DX: F11.23 Opioid dependence with withdrawal (principal); F10.230 Alcohol dependence with withdrawal, uncomplicated; F14.20 Cocaine dependence, uncomplicated; F13.10 Sedative, hypnotic or anxiolytic abuse, uncomplicated; F12.20 Cannabis dependence, uncomplicated; F17.210 Nicotine dependence, cigarettes, uncomplicated; F19.24 Other psychoactive substance dependence with psychoactive substance-induced mood disorder; B18.2 Chronic viral hepatitis C; R76.11 Nonspecific reaction to tuberculin skin test without active tuberculosis; Z98.84 Bariatric surgery status; Z88.0 Allergy status to penicillin
CPT/HCPCS: 36415; 71045-TC-FY; 80053; 85027; 86780; C9803; J0735; U0003; U0005

== ENCOUNTER 2021-09-29 13:00 | Inpatient (IN) | payer OTHER ==
[2021-09-29 13:25] VITALS: BMI 32.1
[2021-09-29] MEDS ORDERED: MAGNESIUM CITRATE 300 ML BOTTLE PO PRN (13:44)
[2021-09-29] MEDS ORDERED: NICOTINE 10 MG CARTRIDGE (INHALER) IH PRN (13:44)
[2021-09-29] MEDS ORDERED: MENTHOL/PHENOL 1 EACH UD MM PRN (13:44)
[2021-09-29] MEDS ORDERED: BISMUTH SUBSALICYLATE 524 MG/30 ML PO PRN (13:44)
[2021-09-29] MEDS ORDERED: MAGNESIUM HYDROX 2400MG/30ML ORAL SUSPENSION 30 ML CUP PO PRN (13:44)
[2021-09-29] MEDS ORDERED: MAG HYDROX/AL HYDROX/SIMETH 30 ML UNIT-DOSE CUP PO PRN (13:44)
[2021-09-29] MEDS ORDERED: ONDANSETRON *ODT* 4 MG TABLET SL PRN (13:44)
[2021-09-29] MEDS ORDERED: ACETAMINOPHEN 325 MG TABLET (FP) PO PRN ×2 (13:44)
[2021-09-29] MEDS ORDERED: methaDONE HCL 10 MG TABLET (FOR DETOX USE ONLY) PO ONE (15:00)
[2021-09-29] MEDS: METHOCARBAMOL 500 MG TABLET PO PRN (15:39)
[2021-09-29] MEDS: hydrOXYzine PAMOATE 25 MG CAPSULE (FP) PO SCH ×3 (15:39→23:55)
[2021-09-29] MEDS: IBUPROFEN 400 MG TABLET (FP) PO PRN (19:21)
[2021-09-29] MEDS: THIAMINE HCL 100 MG TABLET (FP) PO SCH (23:53)
[2021-09-29] MEDS: MELATONIN 5 MG TABLETS PO SCH (23:53)
[2021-09-29] MEDS: CYCLOBENZAPRINE HCL 10 MG TABLET (FP) PO SCH (23:53)
[2021-09-30] MEDS: hydrOXYzine PAMOATE 25 MG CAPSULE (FP) PO SCH ×5 (05:38→22:12)
[2021-09-30] MEDS ORDERED: methaDONE HCL 10 MG TABLET (FOR DETOX USE ONLY) ONE (09:18)
[2021-09-30] MEDS: METHOCARBAMOL 500 MG TABLET PO PRN (09:19)
[2021-09-30] MEDS: PRENATAL VITAMINS W/ FOLIC ACID TABLET (FP) PO SCH (09:19)
[2021-09-30 10:29] LABS: HEMATOCRIT 37.1 % (35.4-49); HEMOGLOBIN 12.2 GM/dL (11.7-16.9); MCH 28.5 pg (25.7-33.7); MCHC 32.9 g/dl (32.0-35.9); MEAN CELL VOLUME 86.6 fl (80-96); MEAN PLT VOLUME 7.2 fl (7.5-11.1); PLATELET COUNT 172 10^3/uL (134-434); RBC 4.28 M/mm3 (4.00-5.60); RDW 14.8 % (11.9-15.9); WHITE BLOOD COUNT 4.3 K/mm3 (4.0-10.0)
[2021-09-30 10:52] LABS: CALCIUM 8.4 mg/dL (8.5-10.1)
[2021-09-30 10:53] LABS: ALBUMIN 2.7 g/dl (3.4-5.0)
[2021-09-30 10:56] LABS: CREATININE 0.8 mg/dL (0.55-1.3)
[2021-09-30 10:57] LABS: BILIRUBIN,TOTAL 0.5 mg/dL (0.2-1); TOT PROT 5.9 g/dl (6.4-8.2)
[2021-09-30] MEDS: IBUPROFEN 400 MG TABLET (FP) PO PRN (14:17)
[2021-09-30] MEDS: cloNIDine HCL 0.1 MG TABLET PO PRN (17:48)
[2021-09-30] MEDS: CYCLOBENZAPRINE HCL 10 MG TABLET (FP) PO SCH (22:12)
[2021-09-30] MEDS: MELATONIN 5 MG TABLETS PO SCH (22:12)
[2021-09-30] MEDS: THIAMINE HCL 100 MG TABLET (FP) PO SCH (22:12)
[2021-10-01] MEDS: cloNIDine HCL 0.1 MG TABLET PO PRN ×2 (05:56→16:45)
[2021-10-01] MEDS: hydrOXYzine PAMOATE 25 MG CAPSULE (FP) PO SCH ×5 (05:56→23:38)
[2021-10-01] MEDS: PRENATAL VITAMINS W/ FOLIC ACID TABLET (FP) PO SCH (10:00)
[2021-10-01] MEDS ORDERED: methaDONE HCL 10 MG TABLET (FOR DETOX USE ONLY) PO ONE (10:00)
[2021-10-01] MEDS: METHOCARBAMOL 500 MG TABLET PO PRN (10:05)
[2021-10-01] MEDS: CYCLOBENZAPRINE HCL 10 MG TABLET (FP) PO SCH (23:38)
[2021-10-01] MEDS: MELATONIN 5 MG TABLETS PO SCH (23:38)
[2021-10-01] MEDS: THIAMINE HCL 100 MG TABLET (FP) PO SCH (23:39)
[2021-10-02] MEDS: hydrOXYzine PAMOATE 25 MG CAPSULE (FP) PO SCH ×5 (05:52→22:12)
[2021-10-02] MEDS ORDERED: methaDONE HCL 10 MG TABLET (FOR DETOX USE ONLY) ONE (09:19)
[2021-10-02] MEDS: METHOCARBAMOL 500 MG TABLET PO PRN (09:45)
[2021-10-02] MEDS: PRENATAL VITAMINS W/ FOLIC ACID TABLET (FP) PO SCH (09:45)
[2021-10-02] MEDS ORDERED: cloNIDine HCL 0.1 MG TABLET PO PRN (10:47)
[2021-10-02] MEDS: MELATONIN 5 MG TABLETS PO SCH (22:11)
[2021-10-02] MEDS: THIAMINE HCL 100 MG TABLET (FP) PO SCH (22:11)
[2021-10-02] MEDS: CYCLOBENZAPRINE HCL 10 MG TABLET (FP) PO SCH (22:12)
[2021-10-03] MEDS: hydrOXYzine PAMOATE 25 MG CAPSULE (FP) PO SCH ×2 (05:43→09:08)
[2021-10-03] MEDS ORDERED: methaDONE HCL 10 MG TABLET (FOR DETOX USE ONLY) PO ONE ×2 (08:19→10:00)
[2021-10-03] MEDS: PRENATAL VITAMINS W/ FOLIC ACID TABLET (FP) PO SCH (09:08)
[2021-10-03 09:25] VITALS: BP 119/64; PULSE 81; TEMP 97.1
== END 2021-10-03 09:40 | disposition home or self-care (01) | DRG 773 ==
LOC: YASAS 13:00 → Y3N 14:47 → Y6N 15:18
PROVIDERS: ADMIT Allergy & Immunology; ATTEND Allergy & Immunology
PROC: HZ2ZZZZ Detoxification Services for Substance Abuse Treatment (ICD-10-PCS; principal; 2021-09-29)
DX: F11.23 Opioid dependence with withdrawal (principal); F14.20 Cocaine dependence, uncomplicated; F12.20 Cannabis dependence, uncomplicated; F17.210 Nicotine dependence, cigarettes, uncomplicated; F41.9 Anxiety disorder, unspecified; R73.09 Other abnormal glucose; E66.9 Obesity, unspecified; Z68.32 Body mass index [BMI] 32.0-32.9, adult; Z88.0 Allergy status to penicillin; Z86.11 Personal history of tuberculosis; Z86.19 Personal history of other infectious and parasitic diseases; Z98.84 Bariatric surgery status
CPT/HCPCS: 36415; 80053; 82962; 85027; 86780; C9803; J0735; Q0162; U0003; U0005

== ENCOUNTER 2021-10-17 12:31 | Inpatient (IN) | payer OTHER ==
[2021-10-17] MEDS ORDERED: MAGNESIUM HYDROX 2400MG/30ML ORAL SUSPENSION 30 ML CUP PO PRN (12:55)
[2021-10-17] MEDS ORDERED: methaDONE HCL 10 MG TABLET (FOR DETOX USE ONLY) PO ONE (12:55)
[2021-10-17] MEDS ORDERED: MAG HYDROX/AL HYDROX/SIMETH 30 ML UNIT-DOSE CUP PO PRN (12:55)
[2021-10-17] MEDS ORDERED: MENTHOL/PHENOL 1 EACH UD MM PRN (12:55)
[2021-10-17] MEDS ORDERED: IBUPROFEN 400 MG TABLET (FP) PO PRN (12:55)
[2021-10-17] MEDS ORDERED: ONDANSETRON *ODT* 4 MG TABLET SL PRN (12:55)
[2021-10-17] MEDS ORDERED: ACETAMINOPHEN 325 MG TABLET (FP) PO PRN ×2 (12:55)
[2021-10-17] MEDS ORDERED: MAGNESIUM CITRATE 300 ML BOTTLE PO PRN (12:55)
[2021-10-17] MEDS ORDERED: NICOTINE 10 MG CARTRIDGE (INHALER) IH PRN (12:55)
[2021-10-17] MEDS ORDERED: METHOCARBAMOL 500 MG TABLET PO PRN (12:55)
[2021-10-17] MEDS ORDERED: BISMUTH SUBSALICYLATE 262 MG/15 ML BTL PO PRN (12:55)
[2021-10-17 13:11] VITALS: BMI 33.6
[2021-10-17] MEDS: PRENATAL VITAMINS W/ FOLIC ACID TABLET (FP) PO SCH (15:46)
[2021-10-17] MEDS: hydrOXYzine PAMOATE 25 MG CAPSULE (FP) PO SCH ×3 (15:47→22:08)
[2021-10-17 16:14] LABS: ALBUMIN 3.4 g/dl (3.4-5.0); CALCIUM 8.6 mg/dL (8.5-10.1); HEMATOCRIT 38.6 % (35.4-49); HEMOGLOBIN 12.5 GM/dL (11.7-16.9); MCHC 32.3 g/dl (32.0-35.9); MEAN CELL VOLUME 86.7 fl (80-96); MEAN PLT VOLUME 7.4 fl (7.5-11.1); PLATELET COUNT 170 10^3/uL (134-434); RBC 4.45 M/mm3 (4.00-5.60); RDW 15.3 % (11.9-15.9)
[2021-10-17 16:15] LABS: BLOOD UREA NITROGEN 14.8 mg/dL (7-18)
[2021-10-17 16:18] LABS: CREATININE 0.8 mg/dL (0.55-1.3)
[2021-10-17 16:19] LABS: BILIRUBIN,TOTAL 0.2 mg/dL (0.2-1); TOT PROT 6.7 g/dl (6.4-8.2)
[2021-10-17] MEDS: CYCLOBENZAPRINE HCL 10 MG TABLET (FP) PO SCH (22:08)
[2021-10-17] MEDS: THIAMINE HCL 100 MG TABLET (FP) PO SCH (22:08)
[2021-10-17] MEDS: MELATONIN 5 MG TABLETS PO SCH (22:09)
[2021-10-18] MEDS: hydrOXYzine PAMOATE 25 MG CAPSULE (FP) PO SCH ×5 (05:50→21:16)
[2021-10-18] MEDS ORDERED: methaDONE HCL 10 MG TABLET (FOR DETOX USE ONLY) ONE (10:07)
[2021-10-18] MEDS: PRENATAL VITAMINS W/ FOLIC ACID TABLET (FP) PO SCH (10:12)
[2021-10-18] MEDS: cloNIDine HCL 0.1 MG TABLET PO PRN (10:12)
[2021-10-18] MEDS: diazePAM 5 MG TABLET PO PRN (10:41)
[2021-10-18] MEDS: CYCLOBENZAPRINE HCL 10 MG TABLET (FP) PO SCH (21:15)
[2021-10-18] MEDS: MELATONIN 5 MG TABLETS PO SCH (21:15)
[2021-10-18] MEDS: THIAMINE HCL 100 MG TABLET (FP) PO SCH (21:16)
[2021-10-19] MEDS: hydrOXYzine PAMOATE 25 MG CAPSULE (FP) PO SCH ×5 (07:11→22:05)
[2021-10-19] MEDS ORDERED: methaDONE HCL 10 MG TABLET (FOR DETOX USE ONLY) PO ONE (10:00)
[2021-10-19] MEDS: PRENATAL VITAMINS W/ FOLIC ACID TABLET (FP) PO SCH (10:11)
[2021-10-19] MEDS: cloNIDine HCL 0.1 MG TABLET PO PRN (10:12)
[2021-10-19] MEDS: diazePAM 5 MG TABLET PO PRN ×3 (10:12→22:07)
[2021-10-19] MEDS: MELATONIN 5 MG TABLETS PO SCH (22:05)
[2021-10-19] MEDS: THIAMINE HCL 100 MG TABLET (FP) PO SCH (22:05)
[2021-10-19] MEDS: CYCLOBENZAPRINE HCL 10 MG TABLET (FP) PO SCH (22:06)
[2021-10-20] MEDS: hydrOXYzine PAMOATE 25 MG CAPSULE (FP) PO SCH ×6 (07:02→22:41)
[2021-10-20] MEDS ORDERED: methaDONE HCL 10 MG TABLET (FOR DETOX USE ONLY) ONE (09:16)
[2021-10-20] MEDS: diazePAM 5 MG TABLET PO PRN ×4 (10:14→22:44)
[2021-10-20] MEDS: PRENATAL VITAMINS W/ FOLIC ACID TABLET (FP) PO SCH (10:15)
[2021-10-20] MEDS: MELATONIN 5 MG TABLETS PO SCH (22:41)
[2021-10-20] MEDS: CYCLOBENZAPRINE HCL 10 MG TABLET (FP) PO SCH (22:41)
[2021-10-20] MEDS: THIAMINE HCL 100 MG TABLET (FP) PO SCH (22:41)
[2021-10-21] MEDS: hydrOXYzine PAMOATE 25 MG CAPSULE (FP) PO SCH ×5 (05:56→23:16)
[2021-10-21] MEDS ORDERED: CHOLECALCIFEROL (VIT D3) 1,000 UNIT (25 MCG) TABLET PO SCH (10:00)
[2021-10-21] MEDS ORDERED: methaDONE HCL 10 MG TABLET (FOR DETOX USE ONLY) PO ONE (10:00)
[2021-10-21] MEDS: ASCORBIC ACID 500 MG TABLET (FP) PO SCH ×2 (11:21→23:17)
[2021-10-21] MEDS: PRENATAL VITAMINS W/ FOLIC ACID TABLET (FP) PO SCH (11:22)
[2021-10-21] MEDS: THIAMINE HCL 100 MG TABLET (FP) PO SCH (23:16)
[2021-10-21] MEDS: CYCLOBENZAPRINE HCL 10 MG TABLET (FP) PO SCH (23:17)
[2021-10-22] MEDS: MELATONIN 5 MG TABLETS PO SCH (00:12)
[2021-10-22] MEDS: hydrOXYzine PAMOATE 25 MG CAPSULE (FP) PO SCH (05:55)
[2021-10-22 09:54] VITALS: BP 120/77; PULSE 78; TEMP 96.9
== END 2021-10-22 10:55 | disposition home or self-care (01) | DRG 773 ==
LOC: YASAS 12:31 → Y3N 14:39
PROVIDERS: ADMIT Allergy & Immunology; ATTEND Allergy & Immunology
PROC: HZ2ZZZZ Detoxification Services for Substance Abuse Treatment (ICD-10-PCS; principal; 2021-10-17)
DX: F11.23 Opioid dependence with withdrawal (principal); F14.20 Cocaine dependence, uncomplicated; F17.210 Nicotine dependence, cigarettes, uncomplicated; F42.9 Obsessive-compulsive disorder, unspecified; F41.9 Anxiety disorder, unspecified; U07.1 COVID-19; M54.50 Low back pain, unspecified; G89.29 Other chronic pain; R74.01 Elevation of levels of liver transaminase levels; R73.9 Hyperglycemia, unspecified; Z86.11 Personal history of tuberculosis; Z98.84 Bariatric surgery status; Z88.0 Allergy status to penicillin
CPT/HCPCS: 36415; 80053; 83036; 85027; 86780; C9803; J0735; U0003; U0005